=== PATIENT | male | born 1990 | race Caucasian/White ===

== ENCOUNTER 2020-09-28 08:22 | Outpatient (CLI) | payer OTHER, SELFPAY ==
--- NOTE | 2020-10-02 12:46 | WPDPFTINT ---
PFT Interpretation Full pulmonary function testing 09/28/2020 1. Flows and volumes both appear satisfactory. Following inhaled bronchodilator, there is little objective change. 2. Diffusing capacity appears normal. This appears to represent normal pulmonary function testing. Patrice Brown MD MSc FACP FCCP
== END 2020-09-28 08:23 | disposition home or self-care (01) ==
PROVIDERS: PCP Nurse Practitioner; Visit Provider Nurse Practitioner
DX: J45.909 Unspecified asthma, uncomplicated (principal)
CPT/HCPCS: 94060; 94726; 94729

== ENCOUNTER 2020-11-08 12:35 | Outpatient (CLI) | payer OTHER, SELFPAY ==
--- NOTE | 2020-11-09 13:25 | WPDPFTINT ---
PFT Interpretation This is a methacholine challenge test. The test was performed and interpreted in accordance with the [employer] guidelines. The test was performed with increasing doses of nebulized methacholine using a 2 minute tidal breathing protocol. The best post-methacholine FEV1 values were used to calculate the change from the post diluent FEV1. Findings: Baseline FEV1 4.29 L, 91% predicted. Post diluent FEV1 4.28 L Post 0.025 mg/ml methacholine FEV1 4.27 L, decreased 0% Post 0.25 mg/mL methacholine FEV1 4.28 L, decreased 0% Post 2.5 mg/mL methacholine FEV1 4.18 L, decreased 2% Post 10 mg/mL methacholine FEV1 4.07 L, decreased 5% Post 25 mg/mL methacholine FEV1 3.91 L, decreased 9% Post albuterol nebulization FEV1 4.21 L Impression: The PC20 is > 25 mg/ml which is categorized as normal bronchial responsiveness. There are no prior methacholine challenge studies for comparison
== END 2020-11-08 12:36 | disposition home or self-care (01) ==
PROVIDERS: PCP Nurse Practitioner; Visit Provider Nurse Practitioner
DX: J45.909 Unspecified asthma, uncomplicated (principal)
CPT/HCPCS: 94070; J7674